=== PATIENT | male | born 1945 | race Caucasian/White ===

== ENCOUNTER 2023-09-18 10:01 | Emergency (ER) | payer OTHER, SELFPAY ==
[2023-09-18] VITALS (7 sets, daily range): BP systolic 215–234; BP diastolic 105–120; PULSE 94–107; RESP 15–21; TEMP 36.6; O2SAT 98–100; BMI 30.7
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
[2023-09-18] MEDS: PROPARACAINE 0.5% OPHTH SOL 1 DROPS EYE-BOTH (10:29)
[2023-09-18] MEDS: FLUORESCEIN 1 MG STRIP EYE-BOTH (10:30)
[2023-09-18] MEDS: TET,DIPH,PERTUSS(ACELL),VAC/PF 0.5 ML SYRINGE IM (10:39)
--- NOTE | 2023-09-18 10:52 | PC.NURSE ---
This RN used light to look at patient throat and it appears pink and moist. Patient nose hairs show no signs of singe.
[2023-09-18 11:15] LABS: COVID19 -Nasal RAPID Negative (Negative)
--- NOTE | 2023-09-18 11:32 | PC.NURSE ---
This RN advised provider of increased blood pressure 218/105. Provider notified and gave no new orders at this time.
== END 2023-09-18 11:56 | disposition short-term general hospital (02) ==
PROVIDERS: Emergency Provider Emergency Medicine
DX: T20.06XA Burn of unspecified degree of forehead and cheek, initial encounter (principal); X00.8XXA Other exposure to uncontrolled fire in building or structure, initial encounter; Z23 Encounter for immunization
CPT/HCPCS: 87635; 90471; 99283; 99284; 90715

== ENCOUNTER 2023-10-10 04:52 | Inpatient (IN) | payer OTHER, MEDICARE, SELFPAY ==
[2023-10-10] VITALS (46 sets, daily range): BP systolic 118–209; BP diastolic 78–132; PULSE 76–144; RESP 12–44; TEMP 3–36.8; O2SAT 30–100; BMI 31.0
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
--- NOTE | 2023-10-10 05:01 | DI.CT.S_ITS ---
PROCEDURE: CT ANGIO CHEST PE PROTOCOL INDICATIONS: SUDDEN SEVERE DYSPNEA, TACHYCARDIA TECHNIQUE: After the administration of intravenous contrast, 2 mm thick sections acquired from the pulmonary apices to the posterior costophrenic angles. 3-dimensional maximum intensity projection (MIP) coronal and sagittal reformats were then acquired through the thorax. For radiation dose reduction, the following was used: automated exposure control, adjustment of mA and/or kV according to patient size. COMPARISON: None. FINDINGS: Image quality: Diagnostic. Pulmonary arteries: Enhancement of the pulmonary artery is adequate. No acute filling defect to the level of the segmental pulmonary arteries. Main pulmonary artery is normal in caliber. Lower Neck: No enlarged lymph nodes. Thyroid: Visualized portion is unremarkable. Axillae: No enlarged lymph nodes. Chest Wall: Unremarkable. Bones: No acute fracture. No aggressive appearing lytic or blastic osseous lesion. Moderate to severe multilevel degenerative changes of the spine. Lungs and Pleura: Bilateral diffuse ground-glass and patchy consolidations with no zonal predilection. A few scattered solid pulmonary nodules measuring up to 3 mm (for example, /, 201). Trace bilateral pleural effusions. Bilateral interlobular septal thickening. No pneumothorax. Debris/mucous within the trachea. Bilateral lower lobe bronchial wall thickening. Heart: Heart size is normal. Left ventricular wall thickening. Small pocket of probable pericardial fluid adjacent to the lower SVC measuring 2.7 x 1 cm (). Mild LAD coronary vessel calcification. Thoracic Vessels: No aortic aneurysm. Ascending thoracic aorta measures 3.8 x 3.7 cm. Mediastinum and Radha: No enlarged lymph nodes. Esophagus: No wall thickening. No hiatal hernia. Upper Abdomen: Visualized upper abdomen solid organs and bowel loops appear normal. Mild calcification of the abdominal aorta. IMPRESSION: 1. No acute pulmonary embolism to the level of the segmental pulmonary arteries. 2. Bilateral ground-glass and patchy consolidations suggestive of multifocal infection. Recommend a repeat CT in 3 months after treatment to document resolution. 3. Interlobular septal thickening with trace bilateral pleural effusions and pericardial effusion compatible with pulmonary edema/congestive heart failure with left ventricular wall thickening. Consider correlation with echo. 4. A few scattered pulmonary nodules measuring up to 3 mm. Fleischner guidelines: If patient is high risk, consider repeat CT chest in 12 months. 5. Mild LAD coronary vessel calcification. Fleischner Society criteria for lung nodule followup. Nodule size (mm)Low-risk patientHigh-risk patient<=4No follow-up needed.Follow-up at 12 months; if no change, no further follow-up.>7-6Gjcfgr-me CT at 12 months; if no change, no further follow-up needed.Initial follow-up CT at 6-12 months, then 18-24 months if no change.>6-8Initial follow-up CT at 6-12 months, then 18-24 months if no change.Initial follow-up CT at 3-6 months, then 9-12 months and 24 months if no change.>8Follow-up CT at 3,9 and 24 months or PET and/or biopsySame as for low-risk patientsNon-solid (ground-glass) or partly solid nodules may require longer follow-up to exclude indolent adenocarcinoma. I agree with the preliminary report. Dictated by: Leydi Sandoval M.D. on 10/10/2023 at 8:42 Approved by: Leydi Sandoval M.D. on 10/10/2023 at 8:50
[2023-10-10 05:08] LABS: Add Manual Diff / Slide Review NO; Basophils Absolute Auto 100 /uL (0-100); Basophils Percent Auto 0.6 % (0-2); Eosinophils Absolute Auto 500 /uL (0-450); Eosinophils Percent Auto 4.2 % (2-4); Hematocrit 46.4 % (41-53); Hemoglobin 15.1 g/dL (13.5-17.5); Lymphocytes Absolute Auto 4300 /uL (1100-4500); Lymphocytes Percent Auto 37.3 % (25-40); Mean Corpuscular HGB Conc 32.6 % (30-36); Mean Corpuscular Hemoglobin 31.5 PG (26-34); Mean Corpuscular Volume 96.6 fL (80-100); Monocytes Absolute Auto 500 /uL (0-900); Monocytes Percent Auto 4.2 % (3-14); Neutrophils Absolute Auto 6300 /uL (1500-7000); Neutrophils Percent Auto 53.7 % (50-75); Platelet Count 268 X10^3/uL (150-400); Red Cell Distribution Width 15.1 % (11.6-14.8); White Blood Cell Count 11.7 X10^3/uL (4.5-11.0)
[2023-10-10 05:14] LABS: INR 0.9 (0.9-1.3); Prothrombin Time 10.8 SECONDS (9.4-12.5)
--- NOTE | 2023-10-10 05:20 | ED_ITS ---
HPI - SOB/Dyspnea General Chief Complaint: Shortness of Breath/Dyspnea Stated Complaint: Resp. distress Time Seen by Provider: 10/10/23 04:57 Source: EMS Mode of arrival: EMS Limitations: no limitations History of Present Illness HPI Narrative: 77-year-old male with no known past medical history (does not go to doctors) presents by EMS from home for shortness of breath. Patient was found on the ground by his gasping for air. When medics arrived patient's oxygen saturations were in the 70s on room air. They placed him on CPAP, administered a nebulizer treatment, and transported him for further evaluation. Patient was noted to be markedly hypertensive EN route with blood pressures greater than systolic 220. History is somewhat limited as patient is working to breathe and on a CPAP mask On arrival patient stated that he had sudden-onset shortness of breath prior to medic arrival. Denies chest pain. Denies history of tobacco use. Patient states he does not want to be intubated but is okay with chest compressions. Related Data Home Medications Medication Instructions Recorded Confirmed aspirin 81 mg chewable tablet 81 mg PO DAILY 10/10/23 10/10/23 bacitracin zinc 500 unit/gram 1 applic topical QID 10/10/23 10/10/23 topical ointment Previous Rx's Medication Instructions Recorded amlodipine 5 mg tablet (Norvasc) 5 mg PO DAILY #30 tabs 10/12/23 lisinopril 5 mg tablet 5 mg PO DAILY #30 tabs 10/12/23 metoprolol tartrate 25 mg tablet 12.5 mg (1/2 x 25 mg) PO BID #60 10/12/23 tabs Allergies Allergy/AdvReac Type Severity Reaction Status Date / Time No Known Drug Allergies Allergy Verified 09/18/23 10:10 Review of Systems Review of Systems Narrative: Limited due to patient condition Patient History Social History household members: spouse and children Smoking Status: Never smoker Smoking Status: Never smoker alcohol intake frequency: 0-2 drinks per day Alcohol type: beer and hard liquor Substance Use Type: marijuana Exam Initial Vital Signs Initial Vital Signs: Vital Signs Pulse Rate 144 H 10/10/23 04:56 Respiratory Rate 34 H 10/10/23 04:56 Blood Pressure 209/132 H 03/11/24 04:56 Pulse Oximetry 89 L 03/11/24 04:56 Oxygen Delivery Method BiPAP 10/10/23 04:56 Const: Awake, alert, severe respiratory distress Cardiac: Tachycardia, regular rhythm RESP: tachypneic, GI: Soft, nontender, nondistended, no rebound, no guarding MSK: Atraumatic, full range of motion, pulses equal Skin: Warm, Dry, intact, no rashes Neuro: AO x3, CN II-XII grossly intact, moves all extremities Course Orders Ordered: Discontinued Medications Acetaminophen (Acetaminophen 325 Mg Tablet) 650 mg PO Q6H PRN PRN Reason: Fever/Mild Pain (1-3) Albuterol/Ipratropium (Albuterol/Ipratropium 3 Ml Ampul) 9 ml INH NOW ONE Stop: 10/10/23 04:58 Last Admin: 10/10/23 07:24 Dose: Not Given Documented By: ERROL Amlodipine Besylate (Amlodipine 5 Mg Tablet) 5 mg PO DAILY [facility] Last Admin: 10/12/23 09:49 Dose: 5 mg Documented By: Admin: 10/11/23 09:36 Dose: 5 mg Documented By: Admin: 10/10/23 12:48 Dose: 5 mg Documented By: DENISE Aspirin (Aspirin 81 Mg Chew Tab) 81 mg PO DAILY [facility] Last Admin: 10/10/23 12:48 Dose: 81 mg Documented By: TLS Aspirin (Aspirin Ec 81 Mg Tablet) 81 mg PO DAILY [facility] Last Admin: 10/12/23 09:49 Dose: 81 mg Documented By: Admin: 10/11/23 09:36 Dose: 81 mg Documented By: PAULETTE Furosemide (Furosemide 40 Mg/4 Ml Vial) 40 mg IV NOW ONE Stop: 10/10/23 06:11 Last Admin: 10/10/23 06:20 Dose: 40 mg Documented By: SB Furosemide (Furosemide 40 Mg/4 Ml Vial) 40 mg IV Q12HR [facility] Last Admin: 10/12/23 00:01 Dose: 40 mg Documented By: Admin: 10/11/23 12:35 Dose: 40 mg Documented By: CLP Heparin Sodium (Porcine) (Heparin 5,000 Unit/Ml Vial) 5,000 unit SUBCUT BID [facility] Last Admin: 10/10/23 12:48 Dose: 5,000 unit Documented By: TLS Heparin Sodium (Porcine) (Heparin 5,000 Unit/Ml Vial) 5,000 unit IV NOW ONE Stop: 10/10/23 16:10 Last Admin: 10/10/23 17:21 Dose: 5,000 unit Documented By: OLEG Dextrose (D10w) 100 mls @ 1,200 mls/hr IV PRN PRN PRN Reason: Hypoglycemia Heparin Sodium/Dextrose (Heparin Drip) 25,000 unit in 500 mls @ 20 mls/hr IV CONT BRIANNE; Protocol Last Titration: 10/11/23 17:21 Dose: Infused Documented By: PAULETTE Co-signed By: SHANE Titration: 10/10/23 23:42 Dose: 21.1 mls/hr, 21.1 mls/hr Documented By: ISABELA Co-signed By: RENAN Titration: 10/10/23 19:30 Dose: 23 mls/hr, 23 mls/hr Documented By: ISABELA Co-signed By: Admin: 10/10/23 17:26 Dose: 22 mls/hr, 22 mls/hr Documented By: OLEG Co-signed By: SINCERE Heparin Sodium/Dextrose (Heparin Drip) 25,000 unit in 500 mls @ 21.12 mls/hr IV CONT BRIANNE; Protocol Last Titration: 10/12/23 05:36 Dose: 12 units/kg/hr, 23.04 mls/hr Documented By: BALDEMAR Co-signed By: RENAN Admin: 10/11/23 17:21 Dose: 11 units/kg/hr, 21.12 mls/hr Documented By: PAULETTE Co-signed By: SHANE Insulin Human Lispro (Insulin Lispro 100 Unit/Ml 3ml Vial) 0 unit SUBCUT ACHS BRIANNE; Protocol Last Admin: 10/12/23 07:45 Dose: Not Given Documented By: Admin: 10/11/23 21:47 Dose: Not Given Documented By: Admin: 10/11/23 17:23 Dose: Not Given Documented By: Admin: 10/11/23 12:34 Dose: Not Given Documented By: Admin: 10/11/23 09:11 Dose: Not Given Documented By: Admin: 10/10/23 21:12 Dose: Not Given Documented By: Admin: 10/10/23 17:55 Dose: Not Given Documented By: OLEG Labetalol HCl (Labetalol 20 Mg/4 Ml Syringe) 20 mg IV NOW ONE Stop: 10/10/23 04:58 Last Admin: 10/10/23 06:20 Dose: 20 mg Documented By: MOON Methylprednisolone (Methylprednisolone 125 Mg/2 Ml Vial) 125 mg IV NOW ONE Stop: 10/10/23 04:58 Last Admin: 10/10/23 07:24 Dose: Not Given Documented By: ERROL Metoprolol Tartrate (Metoprolol Ir 25 Mg Tablet) 12.5 mg PO BID [facility] Last Admin: 10/12/23 09:49 Dose: 12.5 mg Documented By: Admin: 10/11/23 21:49 Dose: 12.5 mg Documented By: Admin: 10/11/23 09:36 Dose: 12.5 mg Documented By: Admin: 10/10/23 20:55 Dose: 12.5 mg Documented By: Admin: 10/10/23 17:20 Dose: 12.5 mg Documented By: OLEG Naloxone HCl (Naloxone 0.4 Mg/Ml Vial) 0.2 mg IV Q2MIN PRN PRN Reason: Opiate Reversal Ondansetron HCl (Ondansetron 4 Mg/2 Ml Inj) 4 mg IV Q8HR PRN PRN Reason: Nausea And Vomiting Oxycodone HCl (Oxycodone Ir 5 Mg Tablet) 5 mg PO Q3H PRN PRN Reason: Pain, Moderate (4-6) Sennosides (Sennosides 8.6 Mg Tablet) 17.2 mg PO BEDTIME [facility] Last Admin: 10/11/23 21:49 Dose: 17.2 mg Documented By: Admin: 10/10/23 20:55 Dose: 17.2 mg Documented By: ISABELA Sodium Chloride (Sodium Chloride 0.9% Flush) 10 ml IV BID [facility] Last Admin: 10/12/23 09:50 Dose: 10 ml Documented By: Admin: 10/11/23 21:49 Dose: 10 ml Documented By: Admin: 10/11/23 12:35 Dose: 10 ml Documented By: Admin: 10/11/23 09:42 Dose: 10 ml Documented By: PAULETTE Vital Signs Vital signs: Vital Signs - 8 hr 10/10/23 04:56 10/10/23 05:18 Temperature 97.9 F Pulse Rate 144 H Respiratory Rate 34 H Blood Pressure 209/132 H Pulse Oximetry 89 L Oxygen Delivery Method BiPAP MDM - SOB/Dyspnea Differential Diagnosis Differential diagnosis: Likely acute exacerbation of chronic obstructive airways disease, congestive heart failure and community acquired pneumonia Lab Data 10/12/23 04:13 10/12/23 04:13 Labs: Lab Results 10/10/23 10/10/23 10/10/23 Range/Units 04:50 04:55 04:59 WBC 11.7 H (4.5-11.0) X10^3/uL RBC 4.80 (4.5-5.9) X10^6/uL Hgb 15.1 (13.5-17.5) g/dL Hct 46.4 (41-53) % MCV 96.6 (80-100) fL MCH 31.5 (26-34) PG MCHC 32.6 (30-36) % RDW 15.1 H (11.6-14.8) % Plt Count 268 (150-400) X10^3/uL Neut % (Auto) 53.7 (50-75) % Lymph % (Auto) 37.3 (25-40) % [place] % (Auto) 4.2 (3-14) % Eos % (Auto) 4.2 H (2-4) % Baso % (Auto) 0.6 (0-2) % Neut # (Auto) 6300 (7659-9111) /uL Lymph # (Auto) 4300 (9233-5055) /uL [place] # (Auto) 500 (0-900) /uL Eos # (Auto) 500 H (0-450) /uL Baso # (Auto) 100 (0-100) /uL PT 10.8 (9.4-12.5) SECONDS INR 0.9 (0.9-1.3) ABG Sample Site Right radial ABG pH 7.24 L* (7.35-7.45) ABG pCO2 38.7 (35-45) mmHg ABG pO2 60 L (80-100) mmHg ABG HCO3 17 L (23-27) mmol/L ABG Total CO2 18 L (23-27) mmol/L ABG O2 Saturation 86 L (95-100) % ABG Base Excess -11.0 L (-2-3) mmol/L FiO2 100 Sodium 143 (137-145) mmol/L Potassium 4.5 (3.4-5.1) mmol/L Chloride 113 H (98-107) mmol/L Carbon Dioxide 17 L (22-32) mmol/L BUN 32 H (9-20) mg/dL Creatinine 2.04 H (0.66-1.25) mg/dL Estimated GFR 33 L (>60) mL/min BUN/Creatinine Ratio 15.7 (6-22) Glucose 317 H (80-110) mg/dL Hemoglobin A1c 5.1 (4.0-6.0) % Calcium 8.6 (8.4-10.2) mg/dL Magnesium 2.0 (1.6-2.3) mg/dL Total Bilirubin 0.9 (0.2-1.3) mg/dL AST 62 H (17-59) IU/L ALT 26 (<50) IU/L Alkaline Phosphatase 98 (38-126) U/L Total Creatine Kinase 93 (55-170) U/L Troponin I 0.034 (0.01-0.034) ng/mL NT-Pro-B Natriuret Pep 4330 H (<450) pg/mL Total Protein 8.4 H (6.3-8.2) g/dL Albumin 4.6 (3.5-5.0) g/dL Globulin 3.8 (1.7-4.1) g/dL Albumin/Globulin Ratio 1.2 (1.0-2.8) Ketones 0.19 (<0.27) mmol/L SARS-CoV-2 (PCR) (Negative) 10/10/23 Range/Units 06:33 WBC (4.5-11.0) X10^3/uL RBC (4.5-5.9) X10^6/uL Hgb (13.5-17.5) g/dL Hct (41-53) % MCV (80-100) fL MCH (26-34) PG MCHC (30-36) % RDW (11.6-14.8) % Plt Count (150-400) X10^3/uL Neut % (Auto) (50-75) % Lymph % (Auto) (25-40) % [place] % (Auto) (3-14) % Eos % (Auto) (2-4) % Baso % (Auto) (0-2) % Neut # (Auto) (6648-2564) /uL Lymph # (Auto) (5430-2014) /uL [place] # (Auto) (0-900) /uL Eos # (Auto) (0-450) /uL Baso # (Auto) (0-100) /uL PT (9.4-12.5) SECONDS INR (0.9-1.3) ABG Sample Site ABG pH (7.35-7.45) ABG pCO2 (35-45) mmHg ABG pO2 (80-100) mmHg ABG HCO3 (23-27) mmol/L ABG Total CO2 (23-27) mmol/L ABG O2 Saturation (95-100) % ABG Base Excess (-2-3) mmol/L FiO2 Sodium (137-145) mmol/L Potassium (3.4-5.1) mmol/L Chloride (98-107) mmol/L Carbon Dioxide (22-32) mmol/L BUN (9-20) mg/dL Creatinine (0.66-1.25) mg/dL Estimated GFR (>60) mL/min BUN/Creatinine Ratio (6-22) Glucose (80-110) mg/dL Hemoglobin A1c (4.0-6.0) % Calcium (8.4-10.2) mg/dL Magnesium (1.6-2.3) mg/dL Total Bilirubin (0.2-1.3) mg/dL AST (17-59) IU/L ALT (<50) IU/L Alkaline Phosphatase (38-126) U/L Total Creatine Kinase (55-170) U/L Troponin I (0.01-0.034) ng/mL NT-Pro-B Natriuret Pep (<450) pg/mL Total Protein (6.3-8.2) g/dL Albumin (3.5-5.0) g/dL Globulin (1.7-4.1) g/dL Albumin/Globulin Ratio (1.0-2.8) Ketones (<0.27) mmol/L SARS-CoV-2 (PCR) Negative (Negative) Imaging Data CT scan - head: Radiologist's Impression: PROCEDURE: CT HEAD/BRAIN WO CON INDICATIONS: GLF, HEAD INJURY TECHNIQUE: Noncontrast 4.5 mm thick angled axial sections acquired from the foramen magnum to the vertex, with coronal and sagittal reformats. For radiation dose reduction, the following was used: automated exposure control, adjustment of mA and/or kV according to patient size. COMPARISON: None. FINDINGS: Image quality: Diagnostic. CSF spaces: Basal cisterns are patent. No extra-axial fluid collections. Ventricles are normal in size and shape. Brain: No midline shift. No intracranial masses or hemorrhage. Small areas of encephalomalacia in the right frontal and right parietal lobes. Periventricular hypodensity consistent with chronic microvascular ischemic change. Age-related parenchymal loss. Skull and face: Calvarium and visualized facial bones are intact, without suspicious lesions. Sinuses: Visualized sinuses and mastoids are clear. IMPRESSION: No acute intracranial pathology. 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 This report is concordant with the overnight preliminary interpretation. Dictated by: Alex Chandler M.D. on 10/10/2023 at 8:03 Approved by: Alex Chandler M.D. on 10/10/2023 at 8:07 CTA - brain/neck: Radiologist's Impression: PROCEDURE: CT ANGIO CHEST PE PROTOCOL INDICATIONS: SUDDEN SEVERE DYSPNEA, TACHYCARDIA TECHNIQUE: After the administration of intravenous contrast, 2 mm thick sections acquired from the pulmonary apices to the posterior costophrenic angles. 3-dimensional maximum intensity projection (MIP) coronal and sagittal reformats were then acquired through the thorax. For radiation dose reduction, the following was used: automated exposure control, adjustment of mA and/or kV according to patient size. COMPARISON: None. FINDINGS: Image quality: Diagnostic. Pulmonary arteries: Enhancement of the pulmonary artery is adequate. No acute filling defect to the level of the segmental pulmonary arteries. Main pulmonary artery is normal in caliber. Lower Neck: No enlarged lymph nodes. Thyroid: Visualized portion is unremarkable. Axillae: No enlarged lymph nodes. Chest Wall: Unremarkable. Bones: No acute fracture. No aggressive appearing lytic or blastic osseous lesion. Moderate to severe multilevel degenerative changes of the spine. Lungs and Pleura: Bilateral diffuse ground-glass and patchy consolidations with no zonal predilection. A few scattered solid pulmonary nodules measuring up to 3 mm (for example, /, 201). Trace bilateral pleural effusions. Bilateral interlobular septal thickening. No pneumothorax. Debris/mucous within the trachea. Bilateral lower lobe bronchial wall thickening. Heart: Heart size is normal. Left ventricular wall thickening. Small pocket of probable pericardial fluid adjacent to the lower SVC measuring 2.7 x 1 cm (). Mild LAD coronary vessel calcification. Thoracic Vessels: No aortic aneurysm. Ascending thoracic aorta measures 3.8 x 3.7 cm. Mediastinum and Radha: No enlarged lymph nodes. Esophagus: No wall thickening. No hiatal hernia. Upper Abdomen: Visualized upper abdomen solid organs and bowel loops appear normal. Mild calcification of the abdominal aorta. IMPRESSION: 1. No acute pulmonary embolism to the level of the segmental pulmonary arteries. 2. Bilateral ground-glass and patchy consolidations suggestive of multifocal infection. Recommend a repeat CT in 3 months after treatment to document resolution. 3. Interlobular septal thickening with trace bilateral pleural effusions and pericardial effusion compatible with pulmonary edema/congestive heart failure with left ventricular wall thickening. Consider correlation with echo. 4. A few scattered pulmonary nodules measuring up to 3 mm. Fleischner guidelines: If patient is high risk, consider repeat CT chest in 12 months. 5. Mild LAD coronary vessel calcification. Fleischner Society criteria for lung nodule followup. Nodule size (mm)Low-risk patientHigh-risk patient<=4No follow-up needed.Follow- up at 12 months; if no change, no further follow-up.>4-7Eokrhw-ei CT at 12 months; if no change, no further follow-up needed.Initial follow-up CT at 6-12 months, then 18-24 months if no change.>6-8Initial follow-up CT at 6-12 months, then 18-24 months if no change.Initial follow-up CT at 3-6 months, then 9-12 months and 24 months if no change.>8Follow-up CT at 3,9 and 24 months or PET and/or biopsySame as for low-risk patientsNon-solid (ground-glass) or partly solid nodules may require longer follow-up to exclude indolent adenocarcinoma. I agree with the preliminary report. Dictated by: Leydi Sandoval M.D. on 10/10/2023 at 8:42 Approved by: Leydi Sandoval M.D. on 10/10/2023 at 8:50 MDM Narrative Medical decision making narrative: Patient presenting in severe respiratory distress, tachypneic, diaphoretic, hypoxic on CPAP. Patient transitioned to BiPAP with improvement in oxygenation and respiratory status. History difficult to obtain based on patient's respiratory status as well as BiPAP mask in place. Patient was able to communicate that the shortness of breath was very sudden in onset and caused him to fall down. He was hypertensive, tachycardic, tachypneic. Differential includes [place], PE, flash pulmonary edema. Patient does not appear to be grossly volume overloaded on exam, currently denying chest pain, EKG tachycardia, no obvious ischemic findings ABG pH 7.2/40/60/17 on BiPAP with 100% FiO2. No leukocytosis present. Creatinine 2, CO2 17, glucose 317. No priors for comparison, suspect that this is longstanding since patient has not seen a primary care doctor in more than 20 years. There was mild elevation in troponin 0.034, elevated BNP 4330. I do not suspect that creatinine elevation is ischemic in nature based on patient's EKG, lack of chest pain, elevated creatinine. CT angio does not appear to show any acute pulmonary emboli, what does appear to be pulmonary edema present on exam. Patient is now much more comfortable on BiPAP, no longer tachypneic, heart rate has come down to 120 beats per minute, he was no longer diaphoretic, now resting comfortably in ED bed. Now suspect that patient had flash pulmonary edema causing abrupt onset of symptoms. Lasix, labetalol ordered for diuresis, heart rate, blood pressure. Critical Care Time Critical Care Time Critical Care Time: Yes Total Critical Care Time: 49 Attestation: Acute hypoxemic respiratory failure requiring BiPAP and BiPAP management. Discharge Plan Departure Patient Disposition: Admitted As Inpatient Clinical Impression: Acute hypoxemic respiratory failure, Creatinine elevation Congestive heart failure (CHF) Qualifiers: Heart failure type: other Qualified Code(s): I50.9 - Heart failure, unspecified Admit Date/Time: 10/10/23 08:35 Admit Provider: Jonh Quezada
[2023-10-10 05:22] LABS: Alanine Aminotransferase 26 IU/L (<50); Albumin 4.6 g/dL (3.5-5.0); Albumin Globulin Ratio 1.2 (1.0-2.8); Alkaline Phosphatase 98 U/L (38-126); Aspartate Aminotransferase 62 IU/L (17-59); BUN Creatinine Ratio 15.7 (6-22); Bilirubin Total 0.9 mg/dL (0.2-1.3); Blood Urea Nitrogen 32 mg/dL (9-20); Calcium 8.6 mg/dL (8.4-10.2); Carbon Dioxide 17 mmol/L (22-32); Chloride 113 mmol/L (98-107); Creatine Kinase 93 U/L (55-170); Estimated Glomerular Filt Rate 33 mL/min (>60); Globulin 3.8 g/dL (1.7-4.1); Glucose 317 mg/dL (80-110); Potassium 4.5 mmol/L (3.4-5.1); Sodium 143 mmol/L (137-145); Total Protein 8.4 g/dL (6.3-8.2)
[2023-10-10 05:31] LABS: NT-proBNP (BNP-Adult 18+) 4330 pg/mL (<450); Troponin I 0.034 ng/mL (0.01-0.034)
[2023-10-10 05:48] LABS: HEMOLYSIS 96 (0-50)
--- NOTE | 2023-10-10 06:05 | PC.NURSE ---
Patients and daugther at bedside. Updated on care upt to this point as well as plan of care. Verbalized understanding. Denied any needs at this time.
[2023-10-10 06:13] LABS: Allen Test for ABG Passed? Yes, Passed; Blood Gas Collection Site Right Radial; Fractionated Inspired Oxygen 100; HCO3 ABG 17 mmol/L (23-27); Oxygen Saturation ABG 86 % (95-100); PCO2 ABG 38.7 mmHg (35-45); PO2 ABG 60 mmHg (80-100); TCO2 ABG 18 mmol/L (23-27)
[2023-10-10 06:14] LABS: pH ABG 7.24 (7.35-7.45)
[2023-10-10] MEDS: LABETALOL 20 MG/4 ML SYRINGE IV (06:20)
[2023-10-10] MEDS: FUROSEMIDE 40 MG/4 ML VIAL IV (06:20)
--- NOTE | 2023-10-10 06:25 | PC.NURSE ---
MD Mckeon at bedside. Discussing plan of care with pt and family.
[2023-10-10 06:52] LABS: Ketones (Beta-Hydroxybutyrate) 0.19 mmol/L (<0.27)
[2023-10-10 08:00] LABS: COVID19 - ADMIT (NP swab/PCR) Negative (Negative)
--- NOTE | 2023-10-10 09:30 | RT ---
Pt off BiPAP at 0930 this morning and on 2L NC. Tolerating well, SpO2 99%, HR 77 BPM, pt comfortable, no apparent resp. distress noted. RN aware.
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
[2023-10-10 11:45] LABS: Hemoglobin A1C% w Est Avg Glu 5.1 % (4.0-6.0)
[2023-10-10 11:58] LABS: MRSA (Nasal) PCR Not Detected (Not Detect)
[2023-10-10] MEDS: AMLODIPINE 5 MG TABLET PO (12:48)
[2023-10-10] MEDS: ASPIRIN 81 MG CHEW TAB PO (12:48)
[2023-10-10] MEDS: HEPARIN 5,000 UNIT/ML VIAL 5000 UNIT SUBCUT (12:48)
--- NOTE | 2023-10-10 15:22 | DI.ECHO.S_ITS ---
[facility]---------+ [facility] +---------+ : : [address] : : : : [id number] : : : : Phone: [phone]+ Echocardiogram Report + + :Name: CLARK LANDAVERDE Study Date: 10/10/2023 Height: 72 in : :[facility] ReadingLocation: Weight: 187 lb : : Gender: Male BSA: 2.1 m2 : :: 1945 Age: 77 yrs BP: 174/103 mmHg: :Reason For Study: SOB : : Performed By: Elsa Doyle : :Referring: TONNY MATHUR L : + + Interpretation Summary Left ventricular ejection fraction is estimated to be 25 +/- 5%. There is moderate to severe global hypokinesis of the left ventricle. The left atrium is moderately dilated. A bicuspid aortic valve cannot be excluded. The right ventricular systolic pressure is estimated to be at least 27 mmHg based on an estimated right atrial pressure of 3 mm Hg. Procedure: A two-dimensional transthoracic echocardiogram with color flow and Doppler was performed. The study quality was technically adequate. There is no prior echocardiogram noted for this patient. The heart rate ranged between 96-100 bpm during the study. Left Ventricle: The left ventricle is moderate-severely dilated. There is normal left ventricular wall thickness. Left ventricular systolic function is moderate to severely reduced. Left ventricular ejection fraction is estimated to be 25 +/- 5%. There is moderate to severe global hypokinesis of the left ventricle. Diastolic function could not be accurately assessed due to tachycardia. Right Ventricle: The right ventricle grossly appears normal in size with probable normal systolic function. Atria: The left atrium is moderately dilated. Right atrial size is normal. The interatrial septum grossly appears intact with no obvious evidence for an atrial septal defect. Mitral Valve: The mitral valve leaflets appear mildly thickened, but open well. There is no mitral regurgitation noted. Aortic Valve: The aortic valve opens well. A bicuspid aortic valve cannot be excluded. No aortic regurgitation is present. Tricuspid Valve: The tricuspid valve is normal in structure and function. There is a trace or physiologic amount of tricuspid regurgitation. The right ventricular systolic pressure is estimated to be at least 27 mmHg based on an estimated right atrial pressure of 3 mm Hg. Pulmonic Valve: The pulmonic valve is not well seen, but is grossly normal. There is no pulmonic valvular regurgitation. Great Vessels: The aortic root is normal size. The ascending aorta is normal in size. The aortic arch is normal in size. The IVC is of normal diameter and collapses greater than 50% with a sniff. This suggests a low right atrial pressure of 3 mm Hg. Pericardium/ Pleura There is no pericardial effusion. There is no pleural effusion. MMode/2D Measurements & Calculations LVIDd: 6.7 cm LVOT diam: 1.9 cm LVIDs: 5.7 cm Ao root diam: 3.5 cm FS: 14.2 % asc Aorta Diam: 2.8 cm EPSS: 1.8 cm Ao Arch Diam (Prox Trans): 2.5 cm IVSd: 1.1 cm LVPWd: 0.85 cm LV hernandez. diameter/BSA (cm/m^2): 3.2 LV sys. diameter/BSA (cm/m^2): 2.8 LA A2 area: 25.8 cm2 RA long axis: 5.0 cm LA A4 area: 30.2 cm2 RA area: 15.5 cm2 LA length (vol): 6.4 cm RA vol: 41.0 ml LA vol: 102.9 ml RA : 19.8 ml/m2 LA vol index: 49.7 ml/m2 IVC diam: 1.4 cm RVD1 (basal): 3.0 cm TAPSE: 1.3 cm Doppler Measurements & Calculations Ao V2 max: 177.9 cm/sec LVOT Max Rikki: 86.1 cm/sec Ao V2 mean: 123.7 cm/sec LV V1 max P.0 mmHg Ao max P.7 mmHg LV V1 VTI: 14.3 cm Ao mean P.9 mmHg LEO(I,D): 1.3 cm2 Ao V2 VTI: 29.7 cm LEO(V,D): 1.3 cm2 sev ratio: 0.48 LEO indexed to BSA (cm^2/m^2): 0.65 MVA(VTI): 3.3 cm2 TR max rikki: 242.8 cm/sec TR max P.6 mmHg PA V2 max: 98.1 cm/sec PA V2 mean: 70.6 cm/sec PA mean P.3 mmHg PA pr(Accel): 25.1 mmHg MV V2 mean: 36.8 cm/sec SV(LVOT): 39.7 ml MV mean P.78 mmHg MV V2 VTI: 12.0 cm Reading Physician:09:12 PM
[2023-10-10 17:06] LABS: PTT Partial Thromboplastin Tim 34 SECONDS (25.1-36.5)
[2023-10-10] MEDS: METOPROLOL IR 25 MG TABLET 12.5 MG PO ×2 (17:20→20:55)
[2023-10-10] MEDS: HEPARIN 5,000 UNIT/ML VIAL 5000 UNIT IV (17:21)
[2023-10-10] MEDS: HEPARIN DRIP 25,000 UNIT/500 ML IV.SOLN 22 UNIT IV (17:26)
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
[2023-10-10] MEDS: SENNOSIDES 8.6 MG TABLET 17.2 MG PO (20:55)
[2023-10-10 23:39] LABS: PTT Partial Thromboplastin Tim 75 SECONDS (25.1-36.5)
[2023-10-11] VITALS (10 sets, daily range): BP systolic 143–193; BP diastolic 83–99; PULSE 79–92; RESP 14–22; TEMP 36.4–37.2; O2SAT 96–98
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
[2023-10-11 05:01] LABS: Add Manual Diff / Slide Review NO; Basophils Absolute Auto 100 /uL (0-100); Eosinophils Absolute Auto 200 /uL (0-450); Eosinophils Percent Auto 2.2 % (2-4); Hemoglobin 13.2 g/dL (13.5-17.5)
[2023-10-11 05:15] LABS: PTT Partial Thromboplastin Tim 57 SECONDS (25.1-36.5)
[2023-10-11 05:17] LABS: BUN Creatinine Ratio 19.9 (6-22); Blood Urea Nitrogen 39 mg/dL (9-20); Calcium 8.9 mg/dL (8.4-10.2); Carbon Dioxide 24 mmol/L (22-32); Chloride 112 mmol/L (98-107); Estimated Glomerular Filt Rate 35 mL/min (>60); Glucose 107 mg/dL (80-110); HEMOLYSIS < 15 (0-50); Potassium 4.1 mmol/L (3.4-5.1); Sodium 141 mmol/L (137-145)
[2023-10-11 05:22] LABS: Basophils Percent Auto 0.7 % (0-2); Hematocrit 38.9 % (41-53); Lymphocytes Absolute Auto 1900 /uL (1100-4500); Lymphocytes Percent Auto 24.1 % (25-40); Mean Corpuscular Volume 94.3 fL (80-100); Monocytes Absolute Auto 600 /uL (0-900); Monocytes Percent Auto 7.3 % (3-14); Neutrophils Absolute Auto 5200 /uL (1500-7000); Neutrophils Percent Auto 65.7 % (50-75); Platelet Count 189 X10^3/uL (150-400); Red Blood Cell Count 4.13 X10^6/uL (4.5-5.9); Red Cell Distribution Width 14.9 % (11.6-14.8); White Blood Cell Count 7.8 X10^3/uL (4.5-11.0)
--- NOTE | 2023-10-11 07:27 | P.PN_ITS ---
Subjective Subjective Interval history: He is doing better today. No chest pain or dyspnea. No leg edema. Exam Vital Signs (past 8 hours): - 10/11/23 00:00 10/11/23 00:01 10/11/23 03:59 Temperature 99.0 F Pulse Rate 82 Respiratory Rate 15 Blood Pressure 171/91 H 165/83 H 193/93 H Pulse Oximetry 98 Oxygen Flow Rate 0 10/11/23 04:00 Temperature 98.6 F Pulse Rate 92 H Respiratory Rate 20 Blood Pressure 183/87 H Pulse Oximetry 97 Oxygen Flow Rate 0 Fraction of Inspired Oxygen 28 SaO2/FiO2 Ratio 357 Oxygen Delivery Method Room Air Oxygen Flow Rate 0 Narrative Exam Narrative: NAD, alert and oriented. Fluent speech. Lungs are clear, normal rate and effort. Heart is regular, no murmur gallop or rub. Abdomen is soft, non distended. Extremities are free of edema. Objective Imaging Echo: Radiologist's impression: Left ventricular ejection fraction is estimated to be 25 +/- 5%. There is moderate to severe global hypokinesis of the left ventricle. The left atrium is moderately dilated. A bicuspid aortic valve cannot be excluded. The right ventricular systolic pressure is estimated to be at least 27 mmHg based on an estimated right atrial pressure of 3 mm Hg. Labs 10/11/23 04:20 10/11/23 04:20 Labs: Laboratory Results - last 24 hr 10/10/23 10/10/23 10/10/23 04:50 06:33 10:34 WBC RBC Hgb Hct MCV MCH MCHC RDW Plt Count Neut % (Auto) Lymph % (Auto) [place] % (Auto) Eos % (Auto) Baso % (Auto) Neut # (Auto) Lymph # (Auto) [place] # (Auto) Eos # (Auto) Baso # (Auto) APTT Sodium Potassium Chloride Carbon Dioxide BUN Creatinine Estimated GFR BUN/Creatinine Ratio Glucose Hemoglobin A1c 5.1 Calcium Troponin I Nasal Screen MRSA (PCR) Not detected SARS-CoV-2 (PCR) Negative 10/10/23 10/10/23 10/10/23 14:55 16:45 22:13 WBC RBC Hgb Hct MCV MCH MCHC RDW Plt Count Neut % (Auto) Lymph % (Auto) [place] % (Auto) Eos % (Auto) Baso % (Auto) Neut # (Auto) Lymph # (Auto) [place] # (Auto) Eos # (Auto) Baso # (Auto) APTT 34 75 H* D Sodium Potassium Chloride Carbon Dioxide BUN Creatinine Estimated GFR BUN/Creatinine Ratio Glucose Hemoglobin A1c Calcium Troponin I 1.170 H* 1.040 H* Nasal Screen MRSA (PCR) SARS-CoV-2 (PCR) 10/11/23 04:20 WBC 7.8 RBC 4.13 L Hgb 13.2 L Hct 38.9 L MCV 94.3 MCH 32.0 MCHC 34.0 RDW 14.9 H Plt Count 189 Neut % (Auto) 65.7 Lymph % (Auto) 24.1 L [place] % (Auto) 7.3 Eos % (Auto) 2.2 Baso % (Auto) 0.7 Neut # (Auto) 5200 Lymph # (Auto) 1900 [place] # (Auto) 600 Eos # (Auto) 200 Baso # (Auto) 100 APTT 57 H D Sodium 141 Potassium 4.1 Chloride 112 H Carbon Dioxide 24 BUN 39 H Creatinine 1.96 H Estimated GFR 35 L BUN/Creatinine Ratio 19.9 Glucose 107 D Hemoglobin A1c Calcium 8.9 Troponin I Nasal Screen MRSA (PCR) SARS-CoV-2 (PCR) [facility] Social History household members: spouse and children Smoking Status: Never smoker Assessment & Plan Assessment & Plan narrative: 1. Acute hypoxic respiratory failure, present on admission and improving. 2. Acute pulmonary edema likely secondary to diastolic heart failure, present on admission and improving. 3. Acute systolic heart failure relating to hypertension, present on admission and active. 4. Uncontrolled hypertension, present on admission and active. 5. Acute kidney injury with creatinine of 2 versus chronic kidney disease, present on admission and active. 6. Hyperglycemia and diabetes not previously diagnosed, present on admission and active. -we will continue diuresis, off O2. -2D echo as above (systolic dysfunction) -heparin drip 48 hours -monitor renal function with diuresis. -side scale insulin and consider Jardiance initiation. -A1c 5.1 -start amlodipine 5 mg, metoprolol 12.5 mg p.o. b.i.d.. The patient is full resuscitation, confirmed time of admission. DNI per the emergency physician. The patient is , his is proxy. He lives in [place] and is accompanied by and daughter. DISPO: Home 10/11.
[2023-10-11] MEDS: AMLODIPINE 5 MG TABLET PO (09:36)
[2023-10-11] MEDS: ASPIRIN EC 81 MG TABLET PO (09:36)
[2023-10-11] MEDS: METOPROLOL IR 25 MG TABLET 12.5 MG PO ×2 (09:36→21:49)
[2023-10-11] MEDS: SODIUM CHLORIDE 0.9% FLUSH 10 ML IV ×3 (09:42→21:49)
[2023-10-11 10:47] LABS: PTT Partial Thromboplastin Tim 51 SECONDS (25.1-36.5)
[2023-10-11] MEDS: FUROSEMIDE 40 MG/4 ML VIAL IV (12:35)
--- NOTE | 2023-10-11 13:30 | CM.DANOTE ---
DCP Assessment Note Pt is a 77yo M here following respiratory distress/CHF. PCP None. Hasn't had a doctor in 15years. SENIOR COMMUNICATIONS SPECIALIST provided a list of PCPs in area that accept ins/accepting new patients. Payer [facility] and Medicare Part A SENIOR COMMUNICATIONS SPECIALIST reviewed EMR. Per hospitalist in morning rounds, anticipate dc home tomorrow. PT eval pending. SENIOR COMMUNICATIONS SPECIALIST entered room and introduced self and role. pt resting in bed. Lives in [place] with spouse and adult dtr, other local children in area. Pt is indep/drives/uses no DME (walks 5-7miles/day). [facility] but doesn't use that resource much. Not interested in starting primary care now but open to list of doctors in area. Pt denies any CM needs at this time, eager to dc home tomorrow. Plan: anticipate home tomorrow with family. No CM needs identified. CM team will follow as needed. ARMAAN Santana Discharge Planning/Care Management CM Discharge Assessment Start: 10/11/23 13:23 Freq: Status: Active Protocol: Document 10/11/23 13:24 (Rec: 10/11/23 13:24 [id number]) Discharge Planning Assessment Assigned [facility] ARMAAN Cisneros DPOA/Assigned Designee Name Shayla spouse Contact Information [phone] Advance Directives? No History Provided By Patient,Family Member Prior Living Arrangements House Household Members spouse,children Type of transporation used prior to Drives own vehicle admit Independent with ADL's Yes Is patient alert and oriented? Yes Barriers to Discharge No Discharge Plan Home Referrals Initiated None needed Whiteboard Updated in Patient Room with Yes name and ext. # of Burnisher Review Status In Process Next Review Type Continued Stay Review
--- NOTE | 2023-10-11 14:20 | PT.IIE ---
Current Diagnoses Acute diastolic (congestive) heart failure (10/10/23) Physical Therapy Inpatient Evaluation/Re-Eval M1 PT/OT-IP Prior Functional Status Start: 10/11/23 08:52 Freq: NEEDED Status: Active Protocol: Document 10/11/23 14:20 DLM (Rec: 10/11/23 14:42 DLM [id number]) Medical Review Prior Functional Status Medical History Reviewed Yes Diet/Fluid Consistency Regular Communication WFL, poor vision right eye and wears patch on it Mobility and Gait Independent without device, active in community Activities of Daily Living and IADL's Independent, drives, mows grass Social History Household Members spouse,children Living Arrangements House Number of Floors (Floors) Two Floors Number of Stairs To Enter/Railing? none, no rail on stairs to bedroom Home Environment Standard Height Toilet,Tub/ Shower Employment Status Retired Additional Social History Comment His works M2 PT-IP Current Condition Start: 10/11/23 08:52 Freq: NEEDED Status: Active Protocol: Document 10/11/23 14:20 DLM (Rec: 10/11/23 14:42 DLM [id number]) Physical Therapy Current Condition Current Condition Evaluation Date 10/11/23 Treatment Diagnosis Respiratory distress, decreased activity tolerance Onset Date 10/10/23 M3 PT-IP Subjective Start: 10/11/23 08:52 Freq: NEEDED Status: Active Protocol: Document 10/11/23 14:20 DLM (Rec: 10/11/23 14:42 DLM [id number]) Subjective Physical Therapy Visit Type Type Initial Evaluation Visit Start Time 13:50 Visit Stop Time 14:20 Number of SYSTEMS COORDINATOR Visits 0 Physical Therapy Visit Comments Patient Comments He reports feeling a lot better today Patient Goals Discharge home. Therapy Pain Assessment Pain When Pain Assessed During Mobility Pain Present Pain Present Denied Pain M4 PT-IP Mobility and Gait Start: 10/11/23 08:52 Freq: NEEDED Status: Active Protocol: Document 10/11/23 14:20 DLM (Rec: 10/11/23 14:42 DLM [id number]) PT-Bed Mobility Assessment Rolling Level of Assist Independent Supine to Sit Supine to Sit Independent Sit to Supine Sit to Supine Independent Scooting Scooting to Edge of Bed Independent Scooting Up and Down in Bed Independent PT-Transfer Assessment Sit to and From Stand Sit to and from Stand Independent Equipment Transfer Assistive Device None Transfers Transfer Destination Chair Transfer Technique Stand Step Pivot Transfer Ability Level of Assist Standby Assistance Comments Mobility Comments Posterior loss of balance with initial sit to stand with self-recovery leaning LE's against bed. Balance improved with progressive mobility. Gait Assessment Gait Gait Assistance Required: Standby Assistance Distance (Feet) 40 Assistive Devices Assistive Device None Factors Limiting Gait Function Factors Limiting Gait Function Decreased Activity Tolerance, Respiratory Distress Comments Gait Comments No losses of balance during gait, assisted him with lines, O2 sats dropped from 95% to 91% with increased respiratory rate PT-Balance Assessment Sitting Balance and Reactions Static Sitting Balance Ability Normal Dynamic Sitting Balance Ability Normal Standing Balance and Reactions Static Standing Balance Ability Good Dynamic Standing Balance Ability Good Device Used none Balance Tests Single Limb Standing right 8-10 sec, left 3 sec with increased sway Romberg increased sway with eyes closed but no loss of balance Tandem Standing independent 10 sec or greater Functional Assessments Functional Tests 5 Times Sit to Stand 19.15 sec from bed, no UE assist M5 PT-IP Objective Assessments Start: 10/11/23 08:52 Freq: NEEDED Status: Active Protocol: Document 10/11/23 14:20 DLM (Rec: 10/11/23 14:42 DL [id number]) Orientation Orientation/Cognition Level of Alertness Alert Orientation Name,Age,Birthday,Month,Date, Year,Day of Week,Place, Situation Language Function Ability No Deficits Noted Safety Awareness Decreased Safety Awareness Memory Description No Deficits Noted Comments mildly impulsive, decreased awareness of need for safety but follows safety instructions well, decreased awareness of his increased respiratory rate with light activity Gross Range of Motion Upper Extremity ROM Assessment Within Functional Limits Lower Extremity ROM Assessment Within Functional Limits Strength Upper Extremity Strength Assessment Within Functional Limits Lower Extremity Strength Assessment Within Functional Limits Coordination Assessment Gross Coordination Gross Coordination WNL Sensation Assessment Sensation Gross Sensation WNL Muscle Tone Muscle Tone WNL Yes M6 PT-IP Treatment Start: 10/11/23 08:52 Freq: NEEDED Status: Active Protocol: Document 10/11/23 14:20 DLM (Rec: 10/11/23 14:42 DL [id number]) Physical Therapy Treatment Education Education Provided Safety Other Treatments Other Treatment Performed educated pt in clinical findings and need to gradually progress his activity level, education to improve his awareness of his current respiratory status M7 PT-IP Assessment and Plan Start: 10/11/23 08:52 Freq: NEEDED Status: Active Protocol: Document 10/11/23 14:20 DLM (Rec: 10/11/23 14:42 DLM [id number]) PT Summary Assessment and Plan Potential Rehabilitation Potential Good Status of Condition at Evaluation Evolving Summary Impairments Transfers,Gait,Activity Tolerance Assessment Summary Magdaleno is alert and resting in bed. He reports feeling much better then at admission. He presents with mild decrease in standing balance and increased respiratory rate with light activity this visit . He has been up for toileting with nursing this hospitalization. He has a two story house at home and is very active at baseline. Gait this visit limited by his lines and medical status. Will continue to follow him to advance his distances of gait and stair trainingn as he improves medically. He appears to be safe to discharge home with his when he his medically stable. Goals Transfer Goal Independent Gait Goal Independent Gait Distance 200 feet with O2 sat 90% or greater Other Goals up/down flight stairs with wall support and SBA Days to Meet Goals 3 Frequency of Treatment Frequency Of Treatment Once a Day Treatment Plan Physical Therapy Treatment Plan Gait Training,Balance Retraining,Discharge Planning, Neuromuscular Re-ed Other Recommendations and Next Treatment anticipate 1-2 more visits Focus Precautions Other Precautions Needs assist to monitor respiratory status, decreased vision right eye CT shows subacute infarcts right frontal and occipital areas Recommendations To Nursing Amount of Assist Needed Standby Assistance Discharge Recommendations PT Discharge Recommendations Home with Assistance Other Discharge Recommendations has supportive Transportation Needs at Discharge Private Vehicle
--- NOTE | 2023-10-11 15:13 | PC.NURSE ---
Patient has had 2 consecutive PTTs in therapeutic range. Per protocol check next PTT in AM. Verified with Dr. Quezada, next PTT scheduled for tomorrow morning.
[2023-10-11] MEDS: HEPARIN DRIP 25,000 UNIT/500 ML IV.SOLN 21.12 UNIT IV (17:21)
[2023-10-11] MEDS: SENNOSIDES 8.6 MG TABLET 17.2 MG PO (21:49)
[2023-10-12] MEDS: FUROSEMIDE 40 MG/4 ML VIAL IV (00:01)
[2023-10-12 04:38] VITALS: BP 153/79; PULSE 80; RESP 16; TEMP 36.4; O2SAT 97
[2023-10-12 05:09] LABS: Add Manual Diff / Slide Review NO; Basophils Absolute Auto 100 /uL (0-100); Basophils Percent Auto 1.1 % (0-2); Eosinophils Absolute Auto 200 /uL (0-450); Eosinophils Percent Auto 3.3 % (2-4); Hemoglobin 14.1 g/dL (13.5-17.5); Lymphocytes Absolute Auto 1700 /uL (1100-4500); Mean Corpuscular HGB Conc 34.3 % (30-36); Mean Corpuscular Hemoglobin 32.1 PG (26-34); Mean Corpuscular Volume 93.6 fL (80-100); Monocytes Absolute Auto 500 /uL (0-900); Monocytes Percent Auto 7.4 % (3-14); Neutrophils Absolute Auto 4100 /uL (1500-7000); Neutrophils Percent Auto 62.2 % (50-75); Platelet Count 199 X10^3/uL (150-400); Red Blood Cell Count 4.39 X10^6/uL (4.5-5.9); Red Cell Distribution Width 14.6 % (11.6-14.8); White Blood Cell Count 6.6 X10^3/uL (4.5-11.0)
[2023-10-12 05:23] LABS: PTT Partial Thromboplastin Tim 44 SECONDS (25.1-36.5)
[2023-10-12 05:39] LABS: BUN Creatinine Ratio 19.7 (6-22); Blood Urea Nitrogen 38 mg/dL (9-20); Calcium 9.2 mg/dL (8.4-10.2); Carbon Dioxide 25 mmol/L (22-32); Chloride 109 mmol/L (98-107); Estimated Glomerular Filt Rate 36 mL/min (>60); Glucose 105 mg/dL (80-110); HEMOLYSIS 16 (0-50); Potassium 3.7 mmol/L (3.4-5.1); Sodium 139 mmol/L (137-145)
[2023-10-12 07:00] VITALS: O2SAT 92
[2023-10-12 08:00] VITALS: BP 129/78; PULSE 75; RESP 17; TEMP 35.8; O2SAT 92
[2023-10-12] MEDS: METOPROLOL IR 25 MG TABLET 12.5 MG PO (09:49)
[2023-10-12] MEDS: AMLODIPINE 5 MG TABLET PO (09:49)
[2023-10-12] MEDS: ASPIRIN EC 81 MG TABLET PO (09:49)
[2023-10-12] MEDS: SODIUM CHLORIDE 0.9% FLUSH 10 ML IV (09:50)
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
--- NOTE | 2023-10-12 10:28 | PT.IPTN ---
Current Diagnoses Acute diastolic (congestive) heart failure (10/10/23) Physical Therapy Treatment Note M2 PT-IP Current Condition Start: 10/11/23 08:52 Freq: NEEDED Status: Active Protocol: Document 10/11/23 14:20 DLM (Rec: 10/11/23 14:42 DLM [id number]) Physical Therapy Current Condition Current Condition Evaluation Date 10/11/23 Treatment Diagnosis Respiratory distress, decreased activity tolerance Onset Date 10/10/23 M3 PT-IP Subjective Start: 10/11/23 08:52 Freq: NEEDED Status: Active Protocol: Document 10/12/23 11:02 TS (Rec: 10/12/23 11:12 TS [id number]) Subjective Physical Therapy Visit Type Type Treatment Note Visit Start Time 10:28 Visit Stop Time 10:55 Number of SETTER OFF Visits 1 Physical Therapy Visit Comments Patient Comments Pt found resting in bed, spouse in room, pt reports feeling much better today and is not on o2. Pt is agreeable to PT. Patient Goals Discharge home. M4 PT-IP Mobility and Gait Start: 10/11/23 08:52 Freq: NEEDED Status: Active Protocol: Document 10/12/23 11:02 TS (Rec: 10/12/23 11:12 TS [id number]) PT-Bed Mobility Assessment Rolling Level of Assist Independent Supine to Sit Supine to Sit Independent Sit to Supine Sit to Supine Independent Scooting Scooting to Edge of Bed Independent Scooting Up and Down in Bed Independent PT-Transfer Assessment Sit to and From Stand Sit to and from Stand Independent Equipment Transfer Assistive Device None Comments Mobility Comments Supine to sit Ind with HOB elevated. STS from bed Ind, pt demonstrates good standing balance with no AD. He ambulated in hallway ~200' SBA with no AD. He performed stairs x16 SBA with single rail, denied SOB. pt ambulated back to room, Spo2 95%, HR 128, RN and hospitalist was notified. Pt wasleft in room, spouse present, all needs met. Gait Assessment Gait Gait Assistance Required: Standby Assistance Distance (Feet) 200 Assistive Devices Assistive Device None Factors Limiting Gait Function Factors Limiting Gait Function Decreased Activity Tolerance Stair Climbing Assessment Evaluation Level of Assist On Stairs Standby Assistance Devices Stair Climbing Assistive Devices Left Railing Technique/Endurance Stair Climbing Direction Ascend and Descend Stair Climbing Technique Step Over Step Number of Steps Climbed 16 PT-Balance Assessment Sitting Balance and Reactions Static Sitting Balance Ability Normal Dynamic Sitting Balance Ability Normal Standing Balance and Reactions Static Standing Balance Ability Good Dynamic Standing Balance Ability Good Device Used none M5 PT-IP Objective Assessments Start: 10/11/23 08:52 Freq: NEEDED Status: Active Protocol: Document 10/11/23 14:20 DLM (Rec: 10/11/23 14:42 DLM [id number]) Orientation Orientation/Cognition Level of Alertness Alert Orientation Name,Age,Birthday,Month,Date, Year,Day of Week,Place, Situation Language Function Ability No Deficits Noted Safety Awareness Decreased Safety Awareness Memory Description No Deficits Noted Comments mildly impulsive, decreased awareness of need for safety but follows safety instructions well, decreased awareness of his increased respiratory rate with light activity Gross Range of Motion Upper Extremity ROM Assessment Within Functional Limits Lower Extremity ROM Assessment Within Functional Limits Strength Upper Extremity Strength Assessment Within Functional Limits Lower Extremity Strength Assessment Within Functional Limits Coordination Assessment Gross Coordination Gross Coordination WNL Sensation Assessment Sensation Gross Sensation WNL Muscle Tone Muscle Tone WNL Yes M6 PT-IP Treatment Start: 10/11/23 08:52 Freq: NEEDED Status: Active Protocol: Document 10/12/23 11:02 TS (Rec: 10/12/23 11:12 [id number]) Physical Therapy Treatment Education Education Provided Safety M7 PT-IP Assessment and Plan Start: 10/11/23 08:52 Freq: NEEDED Status: Active Protocol: Document 10/12/23 11:02 TS (Rec: 10/12/23 11:12 [id number]) PT Summary Assessment and Plan Potential Rehabilitation Potential Good Summary Impairments Transfers,Gait,Activity Tolerance Progress Towards Goals Progressing Toward Goals Assessment Summary Magdaleno is making progress with his mobility. He is Ind for all bed mobility and STS with no AD. He progressed his gait to ~200'SBA with no AD and on RA. He performed steps x16 SBA with single rail. His HR increased to 128 after stairs, Spo2 remained in mid 90's. PT is recommending pt return home with assist. Goals Transfer Goal Independent Gait Goal Independent Gait Distance 200 feet with O2 sat 90% or greater Other Goals up/down flight stairs with wall support and SBA Days to Meet Goals 3 Frequency of Treatment Frequency Of Treatment Once a Day Treatment Plan Physical Therapy Treatment Plan Gait Training,Balance Retraining,Discharge Planning, Neuromuscular Re-ed Precautions Other Precautions Needs assist to monitor respiratory status, decreased vision right eye CT shows subacute infarcts right frontal and occipital areas Recommendations To Nursing Amount of Assist Needed Standby Assistance Discharge Recommendations PT Discharge Recommendations Home with Assistance Other Discharge Recommendations has supportive Transportation Needs at Discharge Private Vehicle
--- NOTE | 2023-10-12 10:38 | CM.DPNOTE ---
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 Per hospitalist in morning rounds, pt cleared to dc home today. Per RN, no new CM needs identified. Per PT eval, home with assistance. Plan: home with family today. No identified CM needs. CM team will follow as needed. ARMAAN Santana
--- NOTE | 2023-10-12 10:48 | DIET.CONS2 ---
Dietary Inpatient Consultation Note Admission Date: 10/10/2023 08:35 77 y M admitted for respiratory distress/CHF. Nutrition screened for heart healthy educ. Met with pt and spouse at bedside. Provided heart healthy nutrition therapy. Pt open to discussion and making changes including label reading at store and reduced intake of saturated fats (butter intake, sauce/gravy intake), regular soda intake, and high sodium foods (including table salt and lunch meats). Discussed a few regular meals/snacks during day to prevent overconsumption due to hunger at dinner. Encouraged small changes/goals at a time. Will continue to monitor. Diet: 10/10/23 Lunch Carbohydrate Consistent Diet Diet Modifications: Carbohydrate level: Medium (3 CHO) Reflex DM orders: No Nutrition Percent Meal Consumed 75% 10/12/23 09:45 Percent Meal Consumed 100% 10/11/23 18:32 Percent Meal Consumed 100% 10/11/23 14:01 Percent Meal Consumed 100% 10/11/23 08:54 Percent Meal Consumed 75% 10/10/23 12:54 Electronically Signed by: Tahira Betts 10/12/23 10:48 Clinical Dietitian [address] [id number]
--- NOTE | 2023-10-12 12:34 | PC.NURSE ---
Pt discharged home at 1230, escorted off floor in wheelchair, accompanied by spouse and hospital staff. IV removed, tele d/c'd, discharge teaching extensively reviewed with patient and spouse including: new diagnoses of heart failure, new medications, side effects of new medications, follow up appointments, lifestyle changes. Questions answered and concerns addressed. Patient left the floor with all belongings.
== END 2023-10-12 12:39 | disposition home or self-care (01) | DRG 291 ==
LOC: ED 06:46 → AC 08:37 → ICU 09:46
PROVIDERS: Admitting Provider Hospitalist; Emergency Provider Emergency Medicine; Referring Provider Emergency Medicine; Visit Provider Hospitalist
DX: I13.0 Hypertensive heart and chronic kidney disease with heart failure and stage 1 through stage 4 chronic kidney disease, or unspecified chronic kidney disease (principal); I50.31 Acute diastolic (congestive) heart failure; J96.01 Acute respiratory failure with hypoxia; I42.0 Dilated cardiomyopathy; E11.65 Type 2 diabetes mellitus with hyperglycemia; E11.22 Type 2 diabetes mellitus with diabetic chronic kidney disease; N18.30 Chronic kidney disease, stage 3 unspecified; I16.0 Hypertensive urgency
CPT/HCPCS: 36415; 36592; 36600; 70450; 71275; 80048; 80053; 82009; 82550; 82805; 82962; 83036; 83735; 83880; 84484; 85025; 85610; 85730; 87635; 87797; 93005; 93010; 93306; 94660; 94760; 96374; 96375; 97116; 97161; 97530; 99284; 99291; J1644; J1940; Q9967

== ENCOUNTER → 2023-10-19 12:09 | Outpatient (CLI) | payer OTHER, SELFPAY ==
[2023-10-10 07:11] VITALS: PULSE 88; RESP 18; O2SAT 98
[2023-10-10 09:47] VITALS: BMI 31.0
[2023-10-19 13:58] LABS: Alanine Aminotransferase 14 IU/L (<50); Albumin 4.6 g/dL (3.5-5.0); Albumin Globulin Ratio 1.3 (1.0-2.8); Alkaline Phosphatase 76 U/L (38-126); Aspartate Aminotransferase 18 IU/L (17-59); Bilirubin Total 0.8 mg/dL (0.2-1.3); Blood Urea Nitrogen 45 mg/dL (9-20); Calcium 9.4 mg/dL (8.4-10.2); Carbon Dioxide 23 mmol/L (22-32); Chloride 111 mmol/L (98-107); Estimated Glomerular Filt Rate 33 mL/min (>60); Globulin 3.6 g/dL (1.7-4.1); Glucose 91 mg/dL (80-110); HEMOLYSIS 22 (0-50); Potassium 5.3 mmol/L (3.4-5.1); Sodium 140 mmol/L (137-145); Total Protein 8.2 g/dL (6.3-8.2)
[2023-10-19 14:04] LABS: Cholesterol 193 mg/dL (140-199); HDL Cholesterol 40 mg/dL (40-60); LDL Cholesterol Calculated 121 mg/dL (<100); Triglycerides 159 mg/dL (35-150)
== END ==
PROVIDERS: PCP Nurse Practitioner Family; Referring Provider Nurse Practitioner Family; Visit Provider Nurse Practitioner Family
DX: I10 Essential (primary) hypertension (principal); N18.9 Chronic kidney disease, unspecified
CPT/HCPCS: 36415; 80053; 80061

== ENCOUNTER → 2023-11-10 10:07 | Outpatient (CLI) | payer OTHER, SELFPAY ==
[2023-10-10 07:11] VITALS: PULSE 88; RESP 18; O2SAT 98
[2023-10-10 09:47] VITALS: BMI 31.0
[2023-11-10 11:24] LABS: Alanine Aminotransferase 13 IU/L (<50); Albumin 4.1 g/dL (3.5-5.0); Albumin Globulin Ratio 1.4 (1.0-2.8); Alkaline Phosphatase 82 U/L (38-126); Aspartate Aminotransferase 17 IU/L (17-59); BUN Creatinine Ratio 16.1 (6-22); Bilirubin Total 0.5 mg/dL (0.2-1.3); Blood Urea Nitrogen 31 mg/dL (9-20); Calcium 9.4 mg/dL (8.4-10.2); Carbon Dioxide 28 mmol/L (22-32); Chloride 108 mmol/L (98-107); Estimated Glomerular Filt Rate 36 mL/min (>60); Globulin 2.9 g/dL (1.7-4.1); Glucose 81 mg/dL (80-110); HEMOLYSIS < 15 (0-50); Potassium 4.6 mmol/L (3.4-5.1); Sodium 142 mmol/L (137-145)
== END ==
LOC: LAB 10:09
PROVIDERS: PCP Nurse Practitioner Family; Referring Provider Nurse Practitioner Family; Visit Provider Nurse Practitioner Family
DX: I12.9 Hypertensive chronic kidney disease with stage 1 through stage 4 chronic kidney disease, or unspecified chronic kidney disease (principal); N18.32 Chronic kidney disease, stage 3b
CPT/HCPCS: 36415; 80053

== ENCOUNTER → 2023-11-22 09:33 | Outpatient (CLI) | payer OTHER, SELFPAY ==
[2023-10-10 07:11] VITALS: PULSE 88; RESP 18; O2SAT 98
[2023-10-10 09:47] VITALS: BMI 31.0
[2023-11-22 10:22] LABS: BUN Creatinine Ratio 16.1 (6-22); Blood Urea Nitrogen 36 mg/dL (9-20); Calcium 9.2 mg/dL (8.4-10.2); Carbon Dioxide 26 mmol/L (22-32); Chloride 108 mmol/L (98-107); Estimated Glomerular Filt Rate 30 mL/min (>60); Glucose 101 mg/dL (80-110); HEMOLYSIS < 15 (0-50); Potassium 4.8 mmol/L (3.4-5.1); Sodium 141 mmol/L (137-145)
== END ==
LOC: LAB 09:37
PROVIDERS: PCP Family Medicine; Referring Provider Internal Medicine; Visit Provider Internal Medicine
DX: I50.22 Chronic systolic (congestive) heart failure (principal)
CPT/HCPCS: 36415; 80048

== ENCOUNTER → 2023-12-29 09:41 | Outpatient (CLI) | payer OTHER, SELFPAY ==
[2023-10-10 07:11] VITALS: PULSE 88; RESP 18; O2SAT 98
[2023-10-10 09:47] VITALS: BMI 31.0
[2023-12-29 11:35] LABS: BUN Creatinine Ratio 17.2 (6-22); Blood Urea Nitrogen 34 mg/dL (9-20); Calcium 8.5 mg/dL (8.4-10.2); Carbon Dioxide 27 mmol/L (22-32); Chloride 109 mmol/L (98-107); Estimated Glomerular Filt Rate 34 mL/min (>60); Glucose 98 mg/dL (80-110); HEMOLYSIS < 15 (0-50); Potassium 4.5 mmol/L (3.4-5.1); Sodium 142 mmol/L (137-145)
== END ==
LOC: LAB 09:42
PROVIDERS: PCP Family Medicine; Referring Provider Internal Medicine; Visit Provider Internal Medicine
DX: I50.22 Chronic systolic (congestive) heart failure (principal)
CPT/HCPCS: 36415; 80048

== ENCOUNTER → 2024-01-23 10:23 | Outpatient (CLI) | payer OTHER, SELFPAY ==
[2023-10-10 07:11] VITALS: PULSE 88; RESP 18; O2SAT 98
[2023-10-10 09:47] VITALS: BMI 31.0
[2024-01-23 12:02] LABS: Blood Urea Nitrogen 40 mg/dL (9-20); Calcium 9.2 mg/dL (8.4-10.2); Carbon Dioxide 23 mmol/L (22-32); Chloride 110 mmol/L (98-107); Estimated Glomerular Filt Rate 32 mL/min (>60); Glucose 114 mg/dL (80-110); HEMOLYSIS < 15 (0-50); Sodium 139 mmol/L (137-145)
[2024-01-23 12:08] LABS: Potassium 5.7 mmol/L (3.4-5.1)
== END ==
PROVIDERS: PCP Family Medicine; Referring Provider Internal Medicine; Visit Provider Internal Medicine
DX: I50.22 Chronic systolic (congestive) heart failure (principal)
CPT/HCPCS: 36415; 80048

== ENCOUNTER → 2024-03-06 08:07 | Outpatient (CLI) | payer OTHER, SELFPAY ==
[2023-10-10 07:11] VITALS: PULSE 88; RESP 18; O2SAT 98
[2023-10-10 09:47] VITALS: BMI 31.0
--- NOTE | 2024-03-06 | DI.ECHO.S_ITS ---
[facility] +---------+ [facility] : : [address] : : [place] : : [id number] : : Phone: [phone] Echocardiogram Report + + :Name: CLARK LANDAVERDE Study Date: 03/06/2024 Height: 71 in : :[facility] ReadingLocation: Weight: 199 lb : : Gender: Male BSA: 2.1 m2 : :: 1945 Age: 78 yrs BP: 201/115 mmHg: :Reason For Study: CHRONIC HEART FAILURE : :Ordering Physician: SANDRA MEEK Performed By: Abraham Marin : :Referring: SANDRA MEEK : + + Interpretation Summary 1. The left ventricular contractility is moderately compromised. Estimated ejection fraction is 35 to 40%. There is severe hypokinesis of the lateral segment with the remaining segments being mild to moderately hypokinetic. Unable to comment on diastolic function 2. The right ventricular contractility is normal. 3. Left ventricular cavity appears to be mildly dilated. 4. Mild aortic insufficiency present. No other significant valvular abnormalities noted. 5. No obvious intracardiac shunts. 6. No obvious intracardiac masses nor thrombi. 7. No hemodynamically significant pericardial effusion. 8. No elevated right-sided filling pressures noted. Conclusion: Moderately compromised left ventricular systolic function. When compared with previous echocardiogram, the left ventricular systolic function has improved. Procedure: A two-dimensional transthoracic echocardiogram with color flow and Doppler was performed in limited views only. The study quality was technically adequate. Comparison is made with the echocardiogram of 10/10/2023. The patient was in sinus rhythm with heart rates between 67-75 bpm during the exam. Left Ventricle: The left ventricle is normal in size and wall thickness. The ejection fraction is estimated to be 35-40%. Mitral Valve: The mitral valve is normal in structure and function. There is trace mitral regurgitation. Aortic Valve: The aortic valve is trileaflet. There is mild aortic regurgitation. Tricuspid Valve: The tricuspid valve is normal. No tricuspid regurgitation. Pulmonic Valve: The pulmonic valve is not well visualized. MMode/2D Measurements & Calculations LVIDd: 5.7 cm LVIDs: 4.5 cm FS: 21.3 % IVSd: 1.1 cm LVPWd: 1.1 cm LV hernandez. diameter/BSA (cm/m^2): 2.7 LV sys. diameter/BSA (cm/m^2): 2.2 Reading Physician:
== END ==
PROVIDERS: PCP Family Medicine; Referring Provider Internal Medicine; Visit Provider Internal Medicine
DX: I35.1 Nonrheumatic aortic (valve) insufficiency (principal); I50.22 Chronic systolic (congestive) heart failure
CPT/HCPCS: 93307

== ENCOUNTER → 2024-03-21 10:05 | Outpatient (CLI) | payer OTHER, SELFPAY ==
[2023-10-10 07:11] VITALS: PULSE 88; RESP 18; O2SAT 98
[2023-10-10 09:47] VITALS: BMI 31.0
[2024-03-21 12:39] LABS: BUN Creatinine Ratio 20.8 (6-22); Blood Urea Nitrogen 38 mg/dL (9-20); Calcium 8.7 mg/dL (8.4-10.2); Carbon Dioxide 23 mmol/L (22-32); Chloride 108 mmol/L (98-107); Estimated Glomerular Filt Rate 38 mL/min (>60); Glucose 96 mg/dL (80-110); HEMOLYSIS < 15 (0-50); Sodium 140 mmol/L (137-145)
== END ==
PROVIDERS: PCP Family Medicine; Referring Provider Internal Medicine; Visit Provider Internal Medicine
DX: I50.22 Chronic systolic (congestive) heart failure (principal)
CPT/HCPCS: 36415; 80048

== ENCOUNTER → 2024-10-05 12:51 | Outpatient (CLI) | payer OTHER, SELFPAY ==
[2023-10-10 07:11] VITALS: PULSE 88; RESP 18; O2SAT 98
[2023-10-10 09:47] VITALS: BMI 31.0
[2024-10-05 14:56] LABS: Hematocrit 40.6 % (41-53); Hemoglobin 13.6 g/dL (13.5-17.5); Mean Corpuscular HGB Conc 33.6 % (30-36); Mean Corpuscular Hemoglobin 31.7 PG (26-34); Mean Corpuscular Volume 94.3 fL (80-100); Platelet Count 194 X10^3/uL (150-400); Red Blood Cell Count 4.31 X10^6/uL (4.5-5.9); White Blood Cell Count 5.6 X10^3/uL (4.5-11.0)
[2024-10-05 15:20] LABS: Alanine Aminotransferase 18 IU/L (<50); Albumin 4.5 g/dL (3.5-5.0); Albumin Globulin Ratio 1.6 (1.0-2.8); Alkaline Phosphatase 85 U/L (38-126); Aspartate Aminotransferase 22 IU/L (17-59); BUN Creatinine Ratio 19.6 (6-22); Bilirubin Total 0.8 mg/dL (0.2-1.3); Blood Urea Nitrogen 35 mg/dL (9-20); Calcium 9.4 mg/dL (8.4-10.2); Carbon Dioxide 22 mmol/L (22-32); Chloride 109 mmol/L (98-107); Cholesterol 145 mg/dL (140-199); Estimated Glomerular Filt Rate 39 mL/min (>60); Globulin 2.9 g/dL (1.7-4.1); Glucose 85 mg/dL (80-110); HDL Cholesterol 49 mg/dL (40-60); HEMOLYSIS < 15 (0-50); LDL Cholesterol Calculated 75 mg/dL (<100); Potassium 5.1 mmol/L (3.4-5.1); Sodium 143 mmol/L (137-145); Total Protein 7.4 g/dL (6.3-8.2); Triglycerides 106 mg/dL (35-150)
== END ==
PROVIDERS: Ophthalmology; PCP Family Medicine; Referring Provider Family Medicine; Visit Provider Family Medicine
DX: I13.0 Hypertensive heart and chronic kidney disease with heart failure and stage 1 through stage 4 chronic kidney disease, or unspecified chronic kidney disease (principal); N18.30 Chronic kidney disease, stage 3 unspecified; E78.5 Hyperlipidemia, unspecified; I10 Essential (primary) hypertension
CPT/HCPCS: 36415; 80053; 80061; 85027

== ENCOUNTER → 2024-10-13 12:44 | Outpatient (CLI) | payer OTHER, SELFPAY ==
[2023-10-10 07:11] VITALS: PULSE 88; RESP 18; O2SAT 98
[2023-10-10 09:47] VITALS: BMI 31.0
--- NOTE | 2024-10-13 12:46 | DI.CT.S_ITS ---
PROCEDURE: CT CHEST WO CON INDICATIONS: evaluate pulmonary nodules TECHNIQUE: Noncontrast 5 mm thick sections acquired from the pulmonary apices to the posterior costophrenic angles. 1 mm lung window, 5 mm thick coronal and sagittal and 7 mm axial MIP reformats were then acquired. For radiation dose reduction, the following was used: automated exposure control, adjustment of mA and/or kV according to patient size. COMPARISON: [facility], CT, CT ANGIO CHEST PE PROTOCOL, 10/10/2023, 4:47. FINDINGS: Image quality: Diagnostic. Lower Neck: No enlarged lymph nodes. Thyroid: No thyroid nodules which require sonographic follow up, per consensus guidelines. Axillae: No enlarged lymph nodes. Chest Wall: Unremarkable. Bones: Unremarkable. Lungs and Pleura: No pneumothorax or pleural effusions. Previously identified nodules are no longer visualized. Areas of ground-glass opacity are present. Heart: Heart size is normal. No pericardial effusion. Previous presumed pericardial fluid is unchanged. Thoracic Vessels: The aorta and pulmonary arteries demonstrate normal size. Mediastinum and Radha: No enlarged lymph nodes. Esophagus: No wall thickening. No hiatal hernia. Upper Abdomen: Visualized upper abdomen solid organs and bowel loops appear normal. IMPRESSION: Previous nodules have resolved. No new nodules are identified. Dictated by: Kasandra Diaz M.D. on 10/13/2024 at 18:10 Approved by: Kasandra Diaz M.D. on 10/13/2024 at 18:15
== END ==
PROVIDERS: PCP Family Medicine; Referring Provider Family Medicine; Visit Provider Family Medicine
DX: R91.1 Solitary pulmonary nodule (principal)
CPT/HCPCS: 71250

== ENCOUNTER 2024-10-17 07:33 | Day surgery (SDC) | payer OTHER, SELFPAY ==
[2023-10-10 07:11] VITALS: PULSE 88; RESP 18; O2SAT 98
[2023-10-10 09:47] VITALS: BMI 31.0
--- NOTE | 2024-10-16 18:28 | PM.PREOP ---
Pre-operative Note COVID-19 COVID-19 status: Not tested Interval Note History & Physical reviewed/Exam performed by Physician: Yes Changes to H&P: No ASA Class (for procedural sedation): II
--- NOTE | 2024-10-16 18:37 | P.OP_ITS ---
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 Bilateral ectropion 2. Nasolacrimal duct obstruction. 3. Mature cataract right eye 4. Clinically significant cataract left eye 5. Chronic kidney disease stage 3 6. History of acute hypoxemic respiratory failure now resolved with subsequent facial bruno 7. Hearing loss 8. Congestive heart failure 9 hyperlipidemia 10. Hypertension Postoperative diagnosis: Status post ectropion repair with horizontal lid shortening and punctal surgery. 3. Anesthesia local with monitored standby. 4. Blood loss: Less than 3 cc 5. Specimen: None Operative summary: Patient presents with excessive irritation and tearing from exposure due to bilateral lower lid laxity malposition the of the lacrimal puncta which were also closed. The patient has a hypermature cataract right eye and advanced cataract left eye. He needs surgery as soon as possible in order to see for his distance and near vision. He has high risk disease also had previous trauma right eye. His eyelid is enrolled in the right more than left with the lashes aimed at his cornea and this would cause an X severe infection risk with cataract surgery. Would also be difficult to maintain a safe surgical operating position. He needs a lid surgery not only to reduce risk of corneal scarring and infection but to proceed with the 2nd procedure which has been scheduled in the next 6 weeks once his eyes adequately healed. The patient has failed conservative measures including lubrication and antibiotic ointment and desires surgery to improve these symptoms. In preoperative holding his blood pressure was dangerously high as he was not taking his blood pressure pills this morning. His systolic was originally 232. Medical consult was called EKG was performed and there was no arrhythmia. His blood pressure pills were given to him and then his blood pressure was still 198/108. Labetalol was added and another pressor agents. By the time he was placed on the operating room his blood pressures was 162/80. Continue to decrease during surgery. The patient is taken to the operating room and positioned. Monitoring is performed. Local anesthetic consisting 1% xylocaine mixed with BSS and 1 cc of hyulronidase is placed through the inferior lid both medial inferior and laterally. 3 cc is given to each lid. This is then supplemented with 2% xylocaine with epinephrine mixed half and half with 0.5% Marcaine with 1 cc of hyulronidase for pain relief and hemostasis. Additional 3 cc. It Good anesthesia was obtained. Attention was placed to the right lower lid. A punctal probe was used to enlarge the punctum. It was then probed to the nose. Tenotomy scissors were used to make a 3 snip procedure to enlarge the punctum permanently. Attention was placed to the lateral canthus. A 15. [employer]-Hema blade was used to make an incision for 1 cm. The periosteum was exposed. Cautery was used as needed. The inferior canthal tendon was lysed with scissors. A tarsal strip was formed with clearance of the anterior and posterior lamella and any exposed lashes. Minimal shortening was performed. The strip was then transected with 4.0 Mersilene type suture which was placed double-armed through the periosteum and t ied with multiple knots at the orbital rim. The outer tarsus and lid was then closed with 6 0 interrupted sutures. A subciliary incision was placed under the lash line at 4 mm. Full-thickness dissection to expose the lower lid retractors was performed and cautery applied. Multiple full-thickness 6 0 Vicryl sutures incorporating the lower lid retractors and placing through the external lid were performed and tied. Good position resulted with minimal bleeding. Attention was placed to the left side. A subciliary incision was performed. Dissection to the lower lid retractors was performed. Cautery applied as needed. Multiple full-thickness 6 0 Vicryl interrupted sutures were placed through the lid and incorporating the lower lid retractors. A wedge resection of lower lid skin was also performed. This was 1/4 mm in thickness. There was minimal bleeding. The punctum was enlarged with a punctal dilator. No horizontal lid shortening was performed as there was good result from the subciliary incision. The patient returned to the recovery room in good condition. Sutures will be removed in the office in approximately 10 days. Patient's blood pressure during the procedure a drop to 100/50 and maintained at that point normal pressure during the remainder of the case. He will continue to follow-up with cardiology as was planned. He was monitored in the postop recovery room and discharged when stable. Same procedure as scheduled: Yes
[2024-10-17] VITALS (12 sets, daily range): BP systolic 99–231; BP diastolic 65–112; PULSE 67–87; RESP 11–18; TEMP 36.2–36.5; O2SAT 97–100; BMI 26.6
[2024-10-17 08:30] LABS: COVID-19 CEPHEID 4-PLEX PCR Negative (Negative); Influenza A - CEPHEID Flu A NEGATIVE (NEGATIVE); Influenza B - CEPHEID Flu B NEGATIVE (NEGATIVE); Respiratory Syncytial Virus Negative (Negative)
--- NOTE | 2024-10-17 08:33 | SUR.PREOP ---
Pt arrives to pre-op with Carvedilol and Entresto in plastic bag, which he normally takes at 1100 daily. SBP > 200, DBP > 100. Pt given both PO Rx at 0800 by this RN. Catrina Watt CRNA notified. Recheck BP 30 minutes later showed SBP > 200; DBP > 100. See VS flowsheet.
--- NOTE | 2024-10-17 09:11 | EKG_ITS ---
[facility] [id number] [place] [id number] Test Date: 2024-10-17 Pat Name: Magdaleno Villanueva Department: Room: Gender: Male Cuffer: Dorinda VILLARREAL : 1945 Requested By: Order Number: [id number] Reading MD: Hunter Collado MD Measurements Intervals [place] Rate: 76 P: 53 ND: 212 QRS: -47 QRSD: 110 T: 51 QT: 374 QTc: 420 Interpretive Statements Sinus rhythm with 1st degree AV block Left axis deviation Septal infarct , age undetermined Electronically Signed On 10-17-2024 9:35:31 PDT by Hunter Collado MD
--- NOTE | 2024-10-17 09:12 | PM.PREOP ---
Pre-operative Note Interval Note History & Physical reviewed/Exam performed by Physician: Yes Changes to H&P: Yes H&P completed within 30 days and has changed as indicated here:: On presentation patient had elevated systolic blood pressure at 232. Had not yet taken his medication. He was taken on arrival and monitored for improvement. EKG was ordered acutely with no arrhythmia. Preoperative history and physical 1 week prior was reviewed. Medicine consult was also obtained. Cardiology notes were reviewed. Repeat blood pressure was 198/108 and labetol was given. Patient was evaluated by Anesthesia. Due to the urgent nature of this case to preserve vision a modified surgery will be performed under local anesthetic with care to choose procedures with more minimal bleeding risk. Patient wishes to proceed. ASA Class (for procedural sedation): III
[2024-10-17] MEDS: LACTATED RINGERS 1,000 ML 42 ML IV ×2 (09:34→11:02)
[2024-10-17] MEDS: LIDOCAINE 1% W/EPI 3 ML, SODIUM CHLORIDE 0.9% 2 ML, HYALURONIDASE 150 UNIT INJ (10:08)
[2024-10-17] MEDS: LIDOCAINE 2% W/EPI 3 ML, BUPIVACAINE 0.5% (PF) 2 ML, HYALURONIDASE 150 UNIT INJ (10:15)
[2024-10-17] MEDS: PROPARACAINE 0.5% OPHTH SOL 2 DROPS EYE-BOTH (10:19)
[2024-10-17] MEDS: NEOMYCIN/POLY/DEX OPHTH OINT 1 APPLIC EYE-BOTH (10:20)
[2024-10-17] MEDS: ERYTHROMYCIN OPHTH 1 GM OINT 1 APPLIC EYE-BOTH (10:21)
[2024-10-17] MEDS: LIDOCAINE 1% W/EPI 20ML 20 ML INJ (10:40)
[2024-10-17] MEDS: ACETAMINOPHEN 325 MG TABLET 650 MG PO (12:16)
== END 2024-10-17 12:44 | disposition home or self-care (01) ==
PROVIDERS: PCP Family Medicine; Referring Provider Ophthalmology; Visit Provider Ophthalmology
PROC: (CPT 67917; principal; 2024-10-17 08:45)
DX: H02.1 Ectropion of eyelid (principal); Z11.52 Encounter for screening for COVID-19; H26.8 Other specified cataract; I13.0 Hypertensive heart and chronic kidney disease with heart failure and stage 1 through stage 4 chronic kidney disease, or unspecified chronic kidney disease; I50.9 Heart failure, unspecified; N18.9 Chronic kidney disease, unspecified; E78.5 Hyperlipidemia, unspecified; H91.90 Unspecified hearing loss, unspecified ear
CPT/HCPCS: 67917; 0241U; 93005; J2250; J2704; J3010; J3470

== ENCOUNTER → 2025-06-15 08:58 | Outpatient (CLI) | payer OTHER, SELFPAY ==
[2023-10-10 07:11] VITALS: PULSE 88; RESP 18; O2SAT 98
[2023-10-10 09:47] VITALS: BMI 31.0
[2025-06-15 11:26] LABS: Alanine Aminotransferase 14 IU/L (<50); Albumin 4.1 g/dL (3.5-5.0); Albumin Globulin Ratio 1.5 (1.0-2.8); Alkaline Phosphatase 84 U/L (38-126); Blood Urea Nitrogen 31 mg/dL (9-20); Calcium 9.1 mg/dL (8.4-10.2); Carbon Dioxide 24 mmol/L (22-32); Chloride 111 mmol/L (98-107); Estimated Glomerular Filt Rate 43 mL/min (>60); Globulin 2.7 g/dL (1.7-4.1); Glucose 107 mg/dL (70-99); HDL Cholesterol 39 mg/dL (40-60); HEMOLYSIS < 15 (0-50); Potassium 5.1 mmol/L (3.4-5.1); Sodium 145 mmol/L (137-145); Total Protein 6.8 g/dL (6.3-8.2)
[2025-06-15 11:28] LABS: Cholesterol 105 mg/dL (140-199); Triglycerides 115 mg/dL (35-150)
== END ==
PROVIDERS: PCP Family Medicine; Referring Provider Internal Medicine; Visit Provider Internal Medicine
DX: I25.10 Atherosclerotic heart disease of native coronary artery without angina pectoris (principal); N18.32 Chronic kidney disease, stage 3b
CPT/HCPCS: 36415; 80053; 80061